=== PATIENT | female | born 1940 | race African-American/Black ===

== ENCOUNTER 2016-06-11 07:26 | Day surgery (SDC) | payer MEDICARE ==
[~2016-06-11] VITALS: Ht 157.5 cm; Wt 78.9 kg
[~2016-06-11 07:26] MED LIST: AMARYL2 MG PO; AMLO5TAB PO; AMOXICILLIN 50500 MG PO; ATORVASTATIN 4040 MG PO; BACTRIM DS 8001 TA1 PO; BYSTOLIC10 MG PO; BYSTOLIC5 MG PO; CEFTIN 250MG T250 MG PO; CIPRO 500MG TA500 MG PO; CIPRODEX 0.3%-7.5 ML OP; CITALOPRAM20 MG PO; DIFLUCAN150 MG PO; DOXYCYCLINE HY100 M4 PO; EAR DROPS OT; FERROUS SULFAT325 M2 PO; FLAGYL500 MG PO; FLEXERIL10 MG PO; GABAPENTIN300 M1 PO; GLIMEPIRIDE 2MG2 MG PO; GLIMEPIRIDE 4MG4 MG PO; HYCODAN 1.5 MG-1 TAB PO; JANUVIA50 MG PO; K-DUR 20MEQ TA20 MEQ PO; KAPIDEX60 MG PO; KEFLEX 500MG.500 MG PO; LISINOPRIL 5MG T5 MG PO; LISINOPRIL2.5 MG PO; LORAZEPAM1 MG PO; LORTAB 5/500 501 TAB PO; LOSARTAN POTAS100 MG PO; MEDROL 4MG. DOSE4 MG PO; METFORMIN500 MG PO; NAPROSYN 500MG500 MG PO; NAPROXEN SODIU500 MG PO; NEXIUM40 MG PO; NORCO 325 MG-51 TAB PO; NORVASC5 MG PO; OMEPRAZOLE D/R20 MG PO; OMEPRAZOLE20 MG PO; OMEPRAZOLE40 MG PO; PRAVASTATIN 20M20 MG PO; PRAVASTATIN 40M40 MG PO; PRAVASTATIN40 MG PO; PREDNISONE 20MG20 MG PO; PRILOSEC40 MG PO; PROMETHAZINE D118 ML PO; PROTONIX 40MG T40 MG PO; SINGULAIR 10 MG10 MG PO; TUSSIGON 1.5 MG1 TAB PO; TYLENOL W/CODEI1 TAB PO; VICODIN 5/500 T1 TAB PO; ZOCOR20 MG PO; ZOFRAN4 MG PO; ZOLOFT100 MG PO
--- NOTE | 2016-06-11 09:18 | Operative Note ---
Upper GI Endoscopy Procedure date: 06/11/16 Date of : 40 Procedure:Upper GI Endoscopy Esophagogastroduodenoscopy with cold biopsies and TTS balloon dilation Indications: Mrs. Nascimento is a 76-year-old female with abdominal pain, bloating and some dyspepsia. The patient has had trouble with constipation for more than a year and states that this dates back to her last colonoscopy in 2015. The patient reports primarily RIGHT lower quadrant pain. She has had dysphagia. She did have a panendoscopy in December [address] Jovanny Albright. This did show gastric fundic polyps, large hiatal hernia on the upper endoscopy and diverticulosis and diminutive polyps 2 on the colonoscopy. The patient does report moderate weight loss. She does state that her sister had colon cancer at the age of 75. She also states that her mother and 2 brothers had cancer. The patient has had moderate stress. Performing Provider: Anastacio Wren MD Referring Provider: Bradley Raphael M.D. Sedation: Mac anesthesia Procedure: Prior to the procedure, a history and physical exam was performed, and patients medications and allergies were reviewed. The risks and benefits of the procedure and the sedation options and risks were discussed with the patient. All questions were answered and informed consent was obtained. The patient was brought to the procedure room. Patient identification and proposed procedure were verified by the physician and the nurse. The patient was placed in a left lateral decubitus position and the scope was passed under direct vision. Throughout the procedure, the patient's blood pressure, pulse, and oxygen saturations were monitored continuously. The endoscope was introduced through the mouth, and advanced to the second part of duodenum. The upper GI endoscopy was accomplished without difficulty. The patient tolerated the procedure well. Findings: The scope was passed directly into the upper esophagus and advanced to the third portion of the duodenum. The post bulbar duodenum and duodenal bulb were normal with normal mucosa and conniventes. There was a duodenal polyp in the first portion of the duodenum between the bulb and first portion that was biopsied. The endoscope was withdrawn through a normal pylorus into the stomach. There was some mild chronic peptic/reactive gastritis and there were several small fundic gland polyps. The remainder of the antrum, body and fundus of the stomach were grossly normal. Upon retroflexion there was a 2 cm hiatal hernia. 2 biopsies were taken in the antrum and along the lesser curvature for histology and/or CLOtest. The scope was then withdrawn into the esophagus. There was no evidence of reflux esophagitis or Sandhu's esophagus. There was no Schatzki's ring. There was tertiary contractions and evidence of moderate esophageal dysmotility. There was a small inflammatory polyp within the hiatal hernia sac. The entire esophagus was dilated to 60 Romanian/20 mm with a TTS hydrostatic balloon. Immediate complications: None EBL (ml): 0 Impression: 1. Nonerosive gastroesophageal reflux disease with moderate esophageal dysmotility/esophageal dyskinesia and small 2 cm hiatal hernia 2. Mild chronic peptic gastritis 3. Duodenal polyp Recommendations: I will follow-up the biopsies. I do feel that the patient has some functional dyspepsia/functional bowel disease with IBS-constipation. I will treat accordingly with dietary measures, fiber bowel regimen and additional treatment for visceral sensitivity. I will proceed with diagnostic colonoscopy. at 0918
--- NOTE | 2016-06-11 09:22 | Operative Note ---
Colonoscopy ([place]) Procedure date: 06/11/16 Date of : 40 Procedure:Colonoscopy Colonoscopy with cold biopsies Indications: Mrs. Nascimento is a 76-year-old female with abdominal pain, bloating and some dyspepsia. The patient has had trouble with constipation for more than a year and states that this dates back to her last colonoscopy in 2014. The patient reports primarily RIGHT lower quadrant pain. She has had dysphagia. She did have a panendoscopy in December [address] Jovanny Albright. This did show gastric fundic polyps, large hiatal hernia on the upper endoscopy and diverticulosis and diminutive polyps 2 on the colonoscopy. The patient does report moderate weight loss. She does state that her sister had colon cancer at the age of 75. She also states that her mother and 2 brothers had cancer. The patient has had moderate stress. Performing Provider: Anastacio Wren MD Referrring Provider: Bradley Raphael M.D. Sedation: Mac sedation Procedure: Prior to the procedure, a history and physical exam was performed, and patient medications and allergies were reviewed. The risks and benefits of the procedure and the sedation options and risks were discussed with the patient. All questions were answered and informed consent was obtained. Patient identification and proposed procedure were verified by the physician and the nurse. The patient was placed in a left lateral decubitus position. Throughout the procedure, the patient's blood pressure, pulse, and oxygen saturations were monitored continuously. Findings: On digital rectal examination there was normal rectal tone. There were no external hemorrhoids. The colonoscope was introduced through the anal canal to the rectum and advanced to the cecum. The ileocecal valve and appendiceal orifice were identified. The scope was advanced a short distance into the ileum which appeared grossly normal. The scope was then withdrawn into the colon. Within the RIGHT colon there were at least 3 lipomas one of which was large and possible intussusception. There was colonic redundancy especially at the hepatic flexure. There were 2 diminutive polyps in the transverse colon removed via cold biopsies. There were extensive scattered diverticuli throughout the descending and sigmoid colon (LEFT colon). The rectum itself was normal. Upon retroflexion within the rectum there were grade 1 internal hemorrhoids. Impressions: 1. Diminutive transverse polyps 2 2. 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 Extensive left-sided diverticulosis 5. Grade 1 internal hemorrhoids Recommendations: I will follow up the polyp histology and recommend repeat screening/surveillance colonoscopy in 5 years. I do feel that her right-sided abdominal pain may be related to hepatic flexure syndrome and constipation versus intermittent intussusception from the large lipomas on the RIGHT side. I may consider CAT scan to help elicit further. I would treat constipation with fiber bowel regimen, dietary measures. I will also treat visceral sensitivity. We will discuss these treatment options. Complications: None EBL (ml): 0 at 0922
[2016-06-11 10:04] VITALS: BP 122/82
== END 2016-06-11 10:12 | disposition home or self-care (01) ==
LOC: SDC 07:26
PROVIDERS: Internal Medicine Gastroenterology
PROC: 0DB98ZX Excision of Duodenum, Via Natural or Artificial Opening Endoscopic, Diagnostic (ICD-10-PCS; 2016-06-11)
PROC: 0DB68ZX Excision of Stomach, Via Natural or Artificial Opening Endoscopic, Diagnostic (ICD-10-PCS; 2016-06-11)
PROC: 0D758ZZ Dilation of Esophagus, Via Natural or Artificial Opening Endoscopic (ICD-10-PCS; 2016-06-11)
PROC: 0DBL8ZX Excision of Transverse Colon, Via Natural or Artificial Opening Endoscopic, Diagnostic (ICD-10-PCS; principal; 2016-06-11 08:30)
DX: R13.10 Dysphagia, unspecified (principal); R10.31 Right lower quadrant pain; Z86.010 Personal history of colon polyps; K59.8 Other specified functional intestinal disorders; K57.90 Diverticulosis of intestine, part unspecified, without perforation or abscess without bleeding; K56.1 Intussusception; D17.79 Benign lipomatous neoplasm of other sites; K64.0 First degree hemorrhoids; D12.3 Benign neoplasm of transverse colon; K21.9 Gastro-esophageal reflux disease without esophagitis; K22.4 Dyskinesia of esophagus; K31.7 Polyp of stomach and duodenum; K29.50 Unspecified chronic gastritis without bleeding; K58.1 Irritable bowel syndrome with constipation; E11.9 Type 2 diabetes mellitus without complications; K44.9 Diaphragmatic hernia without obstruction or gangrene
CPT/HCPCS: C1726